=== PATIENT | female | born 1945 | race Caucasian/White ===

== ENCOUNTER 2021-10-25 08:54 | Emergency (ER) | payer OTHER ==
[~2021-10-25 08:54] MED LIST: ULTRAM50 MG PO
[2021-10-25 09:45] LABS: BASOPHIL 0.5 % (0-2); EOSINOPHIL 0 % (0-7); HGB 13.7 g/dl (12.5-16.0); LYMPHOCYTE 24.9 % (15-48); MCH 31.9 pg (25.0-31.0); MCHC 34.3 g/dL (32.0-36.0); MCV 93.2 fL (78.0-100.0); MONOCYTE 18.4 % (0-12); MPV 10.1 fL (6.0-9.5); NRBC 0; PLT 144 K/uL (150-400); RBC 4.29 M/uL (4.20-5.40); RDW 12.4 % (11.5-14.0); WBC 4.3 K/uL (4.0-10.5)
[2021-10-25 09:56] LABS: ALBUMIN 3.1 g/dL (3.4-5.0); BILIRUBIN - TOTAL 0.4 mg/dL (0.2-1.0); BUN/CREAT RATIO (CALC) 19.7 RATIO; CREATININE 0.66 mg/dL (0.51-0.95); GLOBULIN (CALCULATION) 3.2 g/dL; POTASSIUM 3.1 mmol/L (3.5-5.1); TOTAL PROTEIN 6.3 g/dL (6.4-8.2)
[2021-10-25 10:08] LABS: BILIRUBIN NEGATIVE (NEGATIVE); BLOOD NEGATIVE Ery/uL (NEGATIVE); CLARITY CLEAR (CLEAR); COLOR YELLOW (YELLOW); GLUCOSE (U) NORMAL (NORMAL); LEUKOCYTES TRACE Leu/uL (NEGATIVE); NITRITE NEGATIVE (NEGATIVE); PROTEIN NEGATIVE (NEGATIVE)
[2021-10-25 10:18] LABS: BACTERIA TRACE
[2021-10-25] MEDS ORDERED: ONDANSETRON ODT4 MG PO (11:24)
== END 2021-10-25 12:26 | disposition home or self-care (01) ==
LOC: FER 08:54
PROVIDERS: Emergency Medicine
DX: U07.1 COVID-19 (principal); E11.9 Type 2 diabetes mellitus without complications; I10 Essential (primary) hypertension; F17.200 Nicotine dependence, unspecified, uncomplicated; Z28.310 Unvaccinated for COVID-19; Z91.041 Radiographic dye allergy status
CPT/HCPCS: 36415; 80053; 81001; 85025; J2405; J7030; U0002

== ENCOUNTER 2021-12-20 16:01 | Emergency (ER) | payer OTHER ==
[~2021-12-20 16:01] MED LIST changes: +ONDANSETRON ODT4 MG PO
== END 2021-12-20 21:13 | disposition home or self-care (01) ==
LOC: FER 16:01
DX: M54.6 Pain in thoracic spine (principal); M54.2 Cervicalgia; E04.1 Nontoxic single thyroid nodule; I10 Essential (primary) hypertension; E11.9 Type 2 diabetes mellitus without complications; Z87.891 Personal history of nicotine dependence; Z91.041 Radiographic dye allergy status; W19.XXXA Unspecified fall, initial encounter
CPT/HCPCS: 70450; 71250; 72125; 72128; 72131